=== PATIENT | female | born 1975 ===

== ENCOUNTER 2016-12-09 16:26 | Observation (INO) | payer MEDICAID, OTHER ==
[2016-12-09 17:51] LABS: BASO # 0.1 K/uL (0.0-0.2); BASO % 1.1 % (0.0-2.0); EOS # 0.3 K/uL (0.0-0.7); EOS % 3.1 % (0.0-4.0); HEMATOCRIT 36.2 % (34.0-47.0); LYMPH # 2.4 K/uL (1.0-4.3); LYMPH % 25.1 % (20.0-40.0); MEAN CORPUSCULAR HEMOGLOBIN 28.7 pg (27.0-31.0); MEAN CORPUSCULAR HGB CONC 33.8 g/dL (33.0-37.0); MONO # 0.5 K/uL (0.0-0.8); MONO % 5.5 % (0.0-10.0); NEUT # 6.3 K/uL (1.8-7.0); NEUT % 65.2 % (50.0-75.0); RED CELL DISTRIBUTION WIDTH 13.6 % (11.5-14.5); WHITE BLOOD COUNT 9.7 K/uL (4.8-10.8)
[2016-12-09 18:13] LABS: PARTIAL THROMBOPLASTIN TIME 37.8 Seconds (25.6-37.1)
[2016-12-09 18:14] LABS: ALB/GLOB RATIO 1.2 (1.0-2.1); ALKALINE PHOSPHATASE 52 U/L (38-126); ALT/SGPT 23 U/L (9-52); AST/SGOT 22 U/L (14-36); BILIRUBIN,TOTAL 0.3 mg/dl (0.2-1.3); BLOOD UREA NITROGEN 16 mg/dl (7-17); CALCIUM 8.3 mg/dL (8.4-10.2); CARBON DIOXIDE 20 mmol/L (22-30); CHLORIDE 111 mmol/L (98-107); CHOLESTEROL 197 mg/dL (0-199); GFR AFRICAN-AMERICAN > 60; GLUCOSE,RANDOM 98 mg/dL (65-105); SODIUM 140 mmol/l (132-148); TOTAL PROTEIN 7.4 G/DL (6.3-8.2)
--- NOTE | 2016-12-09 18:23 | ED PDOC ---
HPI: General Adult Time Seen by Provider: 12/09/16 17:03 Chief Complaint (Nursing): Weakness/Neurological Deficit Chief Complaint (Provider): Weakness/Neurological Deficit History Per: Patient History/Exam Limitations: no limitations Onset/Duration Of Symptoms: Hrs (x5) Current Symptoms Are (Timing): Still Present Additional Complaint(s): Sarah Hays is a 41 year old female with previous medical history of asthma, who presents to the emergency department with a complaint of left-sided face and left arm numbness associated with tingling sensation and blurry vision ongoing for 5 hours prior to arrival. Denied any headaches, dizziness, weakness or upper/lower extremity pain. PMD: Alex rGiffin MD NIHSS Stroke Scale - Date/Time Evaluation Performed Date Performed: 12/09/16 Time Performed: 17:26 When Was NIHSS Performed: Baseline - How Severe is the Stroke Level of Consciousness: 0=Alert LOC to Questions: 0=Both comments correct LOC to commands: 0=Obeys both correctly Best Gaze: 0=Normal Visual: 0=No visual loss Facial: 0=Normal Motor Arm - Left: 0=No drift Motor Arm - Right: 0=No drift Motor Leg - Left: 0=No drift Motor Leg - Right: 0=No drift Limb Ataxia: 0=Absent Sensory: 0=Normal Best Language: 0=No aphasia Dysarthia: 0=Normal articulation Extinction & Inattention (Neglect): 0=Normal, no object Score: 0 Severity Of Stroke: 0 = No Stroke rTPA Inclusion/Exclusion - Refusal of Treatment Patient Refused Treatment: No - Inclusion Criteria for Altepase Patient is 18 years or Older: Yes The Clinical Diagnosis of Ischemic Stroke That is Causing a Potentially Disabling Neurological Deficit: No Time of Onset is Well Established to be Less Than 270 Minute Before Treatment Would Begin: No Risk/Benefit Discussed With Patient/Family Member Present: No Past Medical History Reviewed: Historical Data, Nursing Documentation, Vital Signs Vital Signs: Last Vital Signs Temp 98.4 F 12/10/16 12:00 Pulse 60 12/10/16 12:00 Resp 20 12/10/16 12:00 BP 104/71 12/10/16 12:00 Pulse Ox 98 12/10/16 12:00 - Medical History PMH: Asthma Denies: Chronic Kidney Disease - Surgical History Surgical History: No Surg Hx - Family History Family History: States: Unknown Family Hx - Social History Current smoker - smoking cessation education provided: No Alcohol: None Drugs: Denies - Home Medications Home Medications: Ambulatory Orders Medication Instructions Recorded Loratadine [Claritin] 10 mg PO DAILY PRN 12/09/16 - Allergies Allergies/Adverse Reactions: Allergies Allergy/AdvReac Type Severity Reaction Status Date / Time No Known Allergies Allergy Verified 12/09/16 16:50 Review of Systems ROS Statement: Except As Marked, All Systems Reviewed And Found Negative Eyes: Positive for: Vision Change (blurry) Musculoskeletal: Negative for: Arm Pain, Leg Pain Neurological: Positive for: Numbness (left-sided face and left arm associated with tingling). Negative for: Weakness, Headache, Dizziness Physical Exam - Reviewed Nursing Documentation Reviewed: Yes Vital Signs Reviewed: Yes - Physical Exam Appears: Positive for: Well, Non-toxic, No Acute Distress Head Exam: Positive for: ATRAUMATIC, NORMAL INSPECTION, NORMOCEPHALIC Skin: Positive for: Normal Color Eye Exam: Positive for: Normal appearance, EOMI, PERRL. Negative for: Nystagmus ENT: Positive for: Normal ENT Inspection Neck: Positive for: Normal, Painless ROM, Supple. Negative for: Decreased ROM Cardiovascular/Chest: Positive for: Regular Rate, Rhythm, Chest Non Tender Respiratory: Positive for: Normal Breath Sounds, Accessory Muscle Use. Negative for: Decreased Breath Sounds, Respiratory Distress Gastrointestinal/Abdominal: Positive for: Normal Exam, Bowel Sounds, Soft. Negative for: Tenderness Back: Positive for: Normal Inspection. Negative for: L CVA Tenderness, R CVA Tenderness Extremity: Positive for: Normal ROM. Negative for: Tenderness, Pedal Edema, Deformity Neurologic/Psych: Positive for: Alert, sequencing machine operator II-XII (intact), Oriented. Negative for: Motor/Sensory Deficits, Aphasia - Laboratory Results Result Diagrams: 12/09/16 17:42 12/09/16 17:42 - ECG O2 Sat by Pulse Oximetry: 99 (RA) Pulse Ox Interpretation: Normal Medical Decision Making Medical Decision Making: Initial Impression: Left facial/arm numbness Differential Diagnosis: CVA; TIA; multiple sclerosis, cervical radiculopathy Initial Plan: * Type and screen * CT head without contrast * EKG * CMP * Drug screen, urine * Hemoglobin A1C * Lipid panel * Troponin I * CBC * PTT * PT * CXR * Accucheck Time: 1805 --CXR FINDINGS: LUNGS: No active pulmonary disease. PLEURA: No significant pleural effusion identified, no pneumothorax apparent. CARDIOVASCULAR: Normal. OSSEOUS STRUCTURES: No significant abnormalities. VISUALIZED UPPER ABDOMEN: Normal. OTHER FINDINGS: None. IMPRESSION: No active disease. 1829 Discussed the case with Dr Mendez who recommends MRI brain and admission for observation and stroke work up. Scribe Attestation: Documented by Francesca Fajardo, acting as a scribe for Gonzalo Hall MD. Provider Scribe Attestation: All medical record entries made by the Scribe were at my direction and personally dictated by me. I have reviewed the chart and agree that the record accurately reflects my personal performance of the history, physical exam, medical decision making, and the department course for this patient. I have also personally directed, reviewed, and agree with the discharge instructions and disposition. Disposition - Clinical Impression Clinical Impression: Left sided numbness - Patient ED Disposition Is Patient to be Admitted: Yes Discussed With : Alex Griffin Doctor Will See Patient In The: Hospital Counseled Patient/Family Regarding: Studies Performed, Diagnosis - Disposition Disposition Time: 18:30 Condition: FAIR - Pt Status Changed To: Hospital Disposition Of: Observation - POA Present On Arrival: None
--- NOTE | 2016-12-09 18:48 | CT ---
PROCEDURE: CT HEAD WITHOUT CONTRAST. HISTORY: left arm numbness COMPARISON: None available. TECHNIQUE: Axial computed tomography images were obtained through the head/brain without intravenous contrast. Radiation dose: Total exam DLP = 848.33 mGy-cm. This CT exam was performed using one or more of the following dose reduction techniques: Automated exposure control, adjustment of the mA and/or kV according to patient size, and/or use of iterative reconstruction technique. FINDINGS: HEMORRHAGE: No intracranial hemorrhage. BRAIN: No mass effect or edema. No atrophy or chronic microvascular ischemic changes. VENTRICLES: Unremarkable. No hydrocephalus. CALVARIUM: Unremarkable. PARANASAL SINUSES: Unremarkable as visualized. No significant inflammatory changes. MASTOID AIR CELLS: Unremarkable as visualized. No inflammatory changes. OTHER FINDINGS: None. IMPRESSION: Normal CT of the Head. No intracranial mass, hemorrhage or evidence of acute infarct.
--- NOTE | 2016-12-09 20:49 | MRI ---
EXAM: MR Head Without Intravenous Contrast CLINICAL HISTORY: 41 years old, female; Signs and symptoms; Other: Left side numbness; Patient HX: Pat C/O of left-side face and left arm numbness; Additional info: Left sided numbness TECHNIQUE: Magnetic resonance images of the head/brain without intravenous contrast in multiple planes. COMPARISON: CT - HEAD W/O CONTRAST 2016-12-09 18:19 FINDINGS: Brain: Multiple nonspecific punctate foci of T2 and FLAIR hyperintensities in the subcortical white matter of the bilateral frontal and parietal lobes. No hemorrhage. No acute infarct. Ventricles: Unremarkable. No ventriculomegaly. Bones/joints: Unremarkable. Sinuses: Unremarkable as visualized. No acute sinusitis. Mastoid air cells: Unremarkable as visualized. No mastoid effusion. Orbits: Unremarkable as visualized. IMPRESSION: Multiple nonspecific foci of frontal and parietal subcortical white matter hyperintensities. This finding can be associated with a variety of etiologies including chronic microvascular ischemia, long-standing hypertension, headaches, and inflammatory processes. No acute intracranial hemorrhage or infarct.
[2016-12-10 06:12] LABS: THYROID STIMULATING HORMONE 0.86 mIU/ML (0.46-4.68)
--- NOTE | 2016-12-10 08:05 | CARD ---
APPROVED REPORT EKG Measurement Heart [id number] <Conclusion> Sinus bradycardia Otherwise normal ECG
--- NOTE | 2016-12-10 13:07 | CP.PCM.HP ---
History of Present Illness - History of Present Illness History of Present Illness: 41 YO F w/ PMH of asthma presented to the ED with left arm numbness and tingling sensation, with some visual disturbances. - The patient states she had these symptoms in the past as well PMH: Asthma PSH: none Allergies: none Present on Admission - Present on Admission Any Indicators Present on Admission: No Past Patient History - Infectious Disease Hx of Infectious Diseases: None - Past Medical History & Family History Past Medical History?: Yes - Past Social History Smoking Status: Never Smoked - CARDIAC Hx Cardiac Disorders: No - PULMONARY Hx Respiratory Disorders: Yes Hx Asthma: Yes - NEUROLOGICAL Hx Neurological Disorder: Yes Hx Dizziness: Yes - HEENT Hx HEENT Problems: No - RENAL Hx Chronic Kidney Disease: No - ENDOCRINE/METABOLIC Hx Endocrine Disorders: No - HEMATOLOGICAL/ONCOLOGICAL Hx Blood Disorders: No - INTEGUMENTARY Hx Dermatological Problems: No - MUSCULOSKELETAL/RHEUMATOLOGICAL Hx Musculoskeletal Disorders: Yes Hx Falls: No Hx Fractures: Yes (right ankle fx) - GASTROINTESTINAL Hx Gastrointestinal Disorders: No - GENITOURINARY/GYNECOLOGICAL Hx Genitourinary Disorders: No - PSYCHIATRIC Hx Psychophysiologic Disorder: No Hx Substance Use: No - SURGICAL HISTORY Hx Surgeries: Yes Hx Section: Yes (x3) Other/Comment: Right ankle ORIF - ANESTHESIA Hx Anesthesia: Yes Hx Anesthesia Reactions: No Hx Malignant Hyperthermia: No Meds Allergies/Adverse Reactions: Allergies Allergy/AdvReac Type Severity Reaction Status Date / Time No Known Allergies Allergy Verified 12/09/16 16:50 Physical Exam - Constitutional Appears: No Acute Distress - Head Exam Head Exam: NORMAL INSPECTION - Eye Exam Eye Exam: Normal appearance - ENT Exam ENT Exam: Mucous Membranes Moist - Respiratory Exam Respiratory Exam: Clear to Auscultation Bilateral, NORMAL BREATHING PATTERN. absent: Rhonchi, Wheezes - Cardiovascular Exam Cardiovascular Exam: REGULAR RHYTHM, +S1, +S2 - GI/Abdominal Exam GI & Abdominal Exam: Normal Bowel Sounds, Soft. absent: Tenderness - Neurological Exam Neurological exam: Alert, CN II-XII Intact (Motor and sensory grossly intact), Oriented x3 Results - Vital Signs Recent Vital Signs: Last Vital Signs Temp 98.4 F 12/10/16 12:00 Pulse 60 12/10/16 12:00 Resp 20 12/10/16 12:00 BP 104/71 12/10/16 12:00 Pulse Ox 98 12/10/16 12:00 - Labs Result Diagrams: 12/09/16 17:42 12/09/16 17:42 Labs: Laboratory Results - last 24 hr 12/09/16 12/09/16 12/09/16 17:20 17:40 17:42 WBC 9.7 RBC 4.26 Hgb 12.2 Hct 36.2 MCV 85.0 MCH 28.7 MCHC 33.8 RDW 13.6 Plt Count 285 MPV 9.0 Neut % (Auto) 65.2 Lymph % (Auto) 25.1 Lyman % (Auto) 5.5 Eos % (Auto) 3.1 Baso % (Auto) 1.1 Neut # 6.3 Lymph # 2.4 Lyman # 0.5 Eos # 0.3 Baso # 0.1 PT INR APTT Sodium Potassium Chloride Carbon Dioxide Anion Gap BUN Creatinine Est GFR ( Amer) Est GFR (Non-Af Amer) POC Glucose (mg/dL) 102 Random Glucose Hemoglobin A1c Calcium Total Bilirubin AST ALT Alkaline Phosphatase Troponin I Total Protein Albumin Globulin Albumin/Globulin Ratio Triglycerides Cholesterol LDL Cholesterol Direct HDL Cholesterol TSH 3rd Generation Urine Opiates Screen Negative Urine Methadone Screen Negative Ur Barbiturates Screen Negative Ur Phencyclidine Scrn Negative Ur Amphetamines Screen Negative U Benzodiazepines Scrn Negative U Oth Cocaine Metabols Negative U Cannabinoids Screen Negative 12/09/16 12/09/16 12/09/16 17:42 17:42 17:42 WBC RBC Hgb Hct MCV MCH MCHC RDW Plt Count MPV Neut % (Auto) Lymph % (Auto) Lyman % (Auto) Eos % (Auto) Baso % (Auto) Neut # Lymph # Lyman # Eos # Baso # PT 13.2 H INR 1.2 APTT 37.8 H Sodium 140 Potassium 4.0 Chloride 111 H Carbon Dioxide 20 L Anion Gap 13 BUN 16 Creatinine 0.7 Est GFR ( Amer) > 60 Est GFR (Non-Af Amer) > 60 POC Glucose (mg/dL) Random Glucose 98 Hemoglobin A1c 5.8 Calcium 8.3 L Total Bilirubin 0.3 AST 22 ALT 23 Alkaline Phosphatase 52 Troponin I < 0.0120 Total Protein 7.4 Albumin 4.0 Globulin 3.3 Albumin/Globulin Ratio 1.2 Triglycerides 63 Cholesterol 197 LDL Cholesterol Direct 119 HDL Cholesterol 56 TSH 3rd Generation Urine Opiates Screen Urine Methadone Screen Ur Barbiturates Screen Ur Phencyclidine Scrn Ur Amphetamines Screen U Benzodiazepines Scrn U Oth Cocaine Metabols U Cannabinoids Screen 12/10/16 04:20 WBC RBC Hgb Hct MCV MCH MCHC RDW Plt Count MPV Neut % (Auto) Lymph % (Auto) Lyman % (Auto) Eos % (Auto) Baso % (Auto) Neut # Lymph # Lyman # Eos # Baso # PT INR APTT Sodium Potassium Chloride Carbon Dioxide Anion Gap BUN Creatinine Est GFR ( Amer) Est GFR (Non-Af Amer) POC Glucose (mg/dL) Random Glucose Hemoglobin A1c Calcium Total Bilirubin AST ALT Alkaline Phosphatase Troponin I Total Protein Albumin Globulin Albumin/Globulin Ratio Triglycerides 80 D Cholesterol 197 LDL Cholesterol Direct 117 HDL Cholesterol 47 TSH 3rd Generation 0.86 Urine Opiates Screen Urine Methadone Screen Ur Barbiturates Screen Ur Phencyclidine Scrn Ur Amphetamines Screen U Benzodiazepines Scrn U Oth Cocaine Metabols U Cannabinoids Screen Assessment & Plan - Assessment and Plan (Free Text) Assessment: 1) Numbess and tingling down left arm: Most likely secondary to cervical radiculopathy. - MRI: Multiple nonspecific foci of frontal and parietal subcortical white matter hyperintensities. Chronic microvascular ischemia, long standing hypertension - Neuro reccomendation appreciated - Ordered Caroted doppler - CT no acute findings - Continue with Low dose asprin - Lipitor 10 mg - Lyrica 50 mg PO HS - F/U with neuro outpatient if carotid dopler is wnl
--- NOTE | 2016-12-10 13:14 | CP.PCM.DIS ---
Provider - Provider Date of Admission: 12/09/16 18:57 Attending physician: Alex Griffin MD Time Spent in preparation of Discharge (in minutes): 30 Diagnosis - Discharge Diagnosis (1) Cervical radicular pain Status: Acute Hospital Course - Lab Results Lab Results: Most Recent Lab Values WBC 9.7 K/uL (4.8-10.8) 12/09/16 17:42 RBC 4.26 Mil/uL (3.80-5.20) 12/09/16 17:42 Hgb 12.2 g/dL (12.0-16.0) 12/09/16 17:42 Hct 36.2 % (34.0-47.0) 12/09/16 17:42 MCV 85.0 fl (81.0-99.0) 12/09/16 17:42 MCH 28.7 pg (27.0-31.0) 12/09/16 17:42 MCHC 33.8 g/dL (33.0-37.0) 12/09/16 17:42 RDW 13.6 % (11.5-14.5) 12/09/16 17:42 Plt Count 285 K/uL (130-400) 12/09/16 17:42 MPV 9.0 fl (7.2-11.7) 12/09/16 17:42 Neut % (Auto) 65.2 % (50.0-75.0) 12/09/16 17:42 Lymph % (Auto) 25.1 % (20.0-40.0) 12/09/16 17:42 [place] % (Auto) 5.5 % (0.0-10.0) 12/09/16 17:42 Eos % (Auto) 3.1 % (0.0-4.0) 12/09/16 17:42 Baso % (Auto) 1.1 % (0.0-2.0) 12/09/16 17:42 Neut # 6.3 K/uL (1.8-7.0) 12/09/16 17:42 Lymph # 2.4 K/uL (1.0-4.3) 12/09/16 17:42 [place] # 0.5 K/uL (0.0-0.8) 12/09/16 17:42 Eos # 0.3 K/uL (0.0-0.7) 12/09/16 17:42 Baso # 0.1 K/uL (0.0-0.2) 12/09/16 17:42 PT 13.2 Seconds (9.8-13.1) H 12/09/16 17:42 INR 1.2 (0.9-1.2) 12/09/16 17:42 APTT 37.8 Seconds (25.6-37.1) H 12/09/16 17:42 Sodium 140 mmol/l (132-148) 12/09/16 17:42 Potassium 4.0 MMOL/L (3.6-5.0) 12/09/16 17:42 Chloride 111 mmol/L (98-107) H 12/09/16 17:42 Carbon Dioxide 20 mmol/L (22-30) L 12/09/16 17:42 Anion Gap 13 (10-20) 12/09/16 17:42 BUN 16 mg/dl (7-17) 12/09/16 17:42 Creatinine 0.7 mg/dL (0.7-1.2) 12/09/16 17:42 Est GFR ( Amer) > 60 12/09/16 17:42 Est GFR (Non-Af Amer) > 60 12/09/16 17:42 POC Glucose (mg/dL) 102 mg/dL (65-110) 12/09/16 17:20 Random Glucose 98 mg/dL (65-105) 12/09/16 17:42 Hemoglobin A1c 5.8 % (4.2-6.5) 12/09/16 17:42 Calcium 8.3 mg/dL (8.4-10.2) L 12/09/16 17:42 Total Bilirubin 0.3 mg/dl (0.2-1.3) 12/09/16 17:42 AST 22 U/L (14-36) 12/09/16 17:42 ALT 23 U/L (9-52) 12/09/16 17:42 Alkaline Phosphatase 52 U/L (38-126) 12/09/16 17:42 Troponin I < 0.0120 ng/mL (0.00-0.120) 12/09/16 17:42 Total Protein 7.4 G/DL (6.3-8.2) 12/09/16 17:42 Albumin 4.0 g/dL (3.5-5.0) 12/09/16 17:42 Globulin 3.3 gm/dL (2.2-3.9) 12/09/16 17:42 Albumin/Globulin Ratio 1.2 (1.0-2.1) 12/09/16 17:42 Triglycerides 80 mg/DL (0-149) D 12/10/16 04:20 Cholesterol 197 mg/dL (0-199) 12/10/16 04:20 LDL Cholesterol Direct 117 mg/dL (0-129) 12/10/16 04:20 HDL Cholesterol 47 MG/DL (30-70) 12/10/16 04:20 TSH 3rd Generation 0.86 mIU/ML (0.46-4.68) 12/10/16 04:20 Urine Opiates Screen Negative (NEGATIVE) 12/09/16 17:40 Urine Methadone Screen Negative (NEGATIVE) 12/09/16 17:40 Ur Barbiturates Screen Negative (NEGATIVE) 12/09/16 17:40 Ur Phencyclidine Scrn Negative (NEGATIVE) 12/09/16 17:40 Ur Amphetamines Screen Negative (NEGATIVE) 12/09/16 17:40 U Benzodiazepines Scrn Negative (NEGATIVE) 12/09/16 17:40 U Oth Cocaine Metabols Negative (NEGATIVE) 12/09/16 17:40 U Cannabinoids Screen Negative (NEGATIVE) 12/09/16 17:40 - Hospital Course Hospital Course: 1) Numbess and tingling down left arm: Most likely secondary to cervical radiculopathy. - MRI: Multiple nonspecific foci of frontal and parietal subcortical white matter hyperintensities. Chronic microvascular ischemia, long standing hypertension - Neuro reccomendation appreciated - Ordered Caroted doppler - CT no acute findings - Continue with Low dose asprin - Lipitor 10 mg - Lyrica 50 mg PO HS - F/U with neuro outpatient if carotid Doppler is wnl Discharge Exam - Head Exam Head Exam: NORMAL INSPECTION - Eye Exam Eye Exam: Normal appearance - Respiratory Exam Respiratory Exam: Clear to PA & Lateral, NORMAL BREATHING PATTERN, UNREMARKABLE - Cardiovascular Exam Cardiovascular Exam: REGULAR RHYTHM, +S1, +S2 - GI/Abdominal Exam GI & Abdominal Exam: Normal Bowel Sounds, Soft. absent: Tenderness - Neurological Exam Neurological exam: Alert, CN II-XII Intact, Oriented x3 Additional comments: motor and sensory intact - Skin Skin Exam: Normal Color, Warm Discharge Plan - Follow Up Plan Condition: STABLE Disposition: HOME/ ROUTINE
--- NOTE | 2016-12-10 14:16 | CON ---
NEUROLOGY CONSULTATION REPORT REASON FOR CONSULTATION: Numbness in the left arm and left face. HISTORY OF PRESENT ILLNESS: The patient is a 41-year-old female who I have been asked for evaluation of numbness in the left arm and left face. This started yesterday. It lasted several minutes and then spontaneously resolved. The patient did not have any headache before or after the episode. Does not get headaches usually. She had some blurring of vision. At the moment, she feels fine. Denies any other complaints. PAST MEDICAL HISTORY: None. MEDICATIONS AT HOME: None. ALLERGIES: NO KNOWN DRUG ALLERGIES. FAMILY HISTORY: Reviewed and noncontributory to the case. SOCIAL HISTORY: Denies smoking, use of alcohol or illicit drugs. REVIEW OF SYSTEMS: Denies any headache, chest pain, shortness of breath, abdominal pain, constipation, diarrhea, dysuria, pyuria, cough with sputum production. PHYSICAL EXAMINATION GENERAL: The patient is a middle-aged pleasant female, sitting, in no acute distress. VITAL SIGNS: Blood pressure is 118/77, heart rate is 57 per minute, breathing at the rate of 16 per minute, temperature is 98.5 degrees Fahrenheit. HEENT: Head is normocephalic, atraumatic. NECK: Supple. There are no carotid bruits. LUNGS: Clear. CARDIOVASCULAR SYSTEM: S1 and S2 are audible. No murmurs. ABDOMEN: Soft and nontender. Bowel sounds present. NEUROLOGY: Mental status: The patient is awake and alert, oriented to time, place and person. Her speech is fluent. Naming and repetition normal. Memory and cognition are intact. Cranial nerve examination: Pupils are 3 mm, bilaterally reactive to light. Visual jade are full. Extraocular movements are intact. There is no facial asymmetry. Palate is upgoing bilaterally and tongue is midline. Motor examination: Tone is normal. Power is 5/5 bilaterally in all extremities. Reflexes 1+ and symmetrical. Plantars downgoing bilaterally. LABORATORY DATA: Labs reviewed. MRI of the brain shows multiple nonspecific foci of frontal and parietal subcortical white matter hyperintensities. Findings can be associated with a variety of etiologies including chronic microvascular ischemia, longstanding hypertension or migraine. No acute intracranial pathology. IMPRESSION: Status post numbness and tingling sensation in the left hand and left face with associated blurred vision. This may have been a transient ischemic attack versus questionable migraine accompaniment. RECOMMENDATION: 1. Agree with starting the patient on aspirin and statin. 2. The patient to have carotid Doppler study. 3. If the patient's carotid Doppler is negative for any acute pathology, then she may be discharged with outpatient followup. Thank you for the opportunity to participate in the care of this patient. Monik Mendez MD
--- NOTE | 2016-12-10 15:05 | US ---
PROCEDURE: Duplex ultrasound of the carotid and vertebral arteries. HISTORY: Left face and arm numbness COMPARISON: None available. TECHNIQUE: Grayscale and duplex Doppler evaluation of the cervical carotid and vertebral arteries were performed. The common carotid, carotid bifurcations and cervical ICA and proximal ECA were evaluated. The vertebral arteries were evaluated for gross patency and direction. FINDINGS: RIGHT CAROTID ARTERIES: Common Carotid Artery: Normal. Maximal flow velocity of 79.8 cm/s. Carotid Bifurcation: Normal. Internal Carotid Artery:Normal. Maximal flow velocity of 71.9 cm/s. External Carotid Artery (proximal branches): Normal. Maximal flow velocity of 71.1 cm/s. ICA/CCA Ratio: 1.2 LEFT CAROTID ARTERIES: Common Carotid Artery: Normal. Maximal flow velocity of 67.2 cm/s. Carotid Bifurcation: Normal. Internal Carotid Artery:Normal. Maximal flow velocity of 78.1 cm/s. External Carotid Artery (proximal branches): Normal. Maximal flow velocity of 59.8 cm/s. ICA/CCA Ratio: 1.4 VERTEBRAL ARTERIES: Right Vertebral Artery: Patent. Antegrade flow. Left Vertebral Artery: Patent. Antegrade flow. OTHER FINDINGS: None. IMPRESSION: No hemodynamically significant stenosis.
[2016-12-10 15:40] VITALS: O2SAT 99
[2016-12-10 16:22] VITALS: BP 123/79; PULSE 66; RESP 14; TEMP 97.6
== END 2016-12-10 17:01 | disposition home or self-care (01) ==
LOC: H.ER 16:26 → H.ERHOLD 18:57 → H.TEL 20:57
PROVIDERS: ADMIT Family Medicine; ATTEND Family Medicine
DX: M54.12 Radiculopathy, cervical region (principal); I10 Essential (primary) hypertension; J45.909 Unspecified asthma, uncomplicated; Z79.899 Other long term (current) drug therapy
CPT/HCPCS: 36415; 70450; 70551; 71010; 80053; 80061; 81025; 82948; 83036; 84443; 84484; 85025; 85610; 85730; 93005; 93880; 99285; G0378; G0480

== ENCOUNTER 2017-01-22 00:59 | Emergency (ER) | payer MEDICAID ==
[2017-01-22 01:22] VITALS: BP 130/85; PULSE 70; RESP 16; TEMP 98.7; O2SAT 99
[2017-01-22] MEDS ORDERED: Sodium Chloride 0.9% 1,000 ML IV STA ×2 (01:39→01:58)
[2017-01-22 02:14] LABS: BASO % 0.4 % (0.0-2.0); EOS # 0.6 K/uL (0.0-0.7); EOS % 6.7 % (0.0-4.0); HEMATOCRIT 37.7 % (34.0-47.0); LYMPH # 1.8 K/uL (1.0-4.3); LYMPH % 20.9 % (20.0-40.0); MEAN CELL VOLUME 85.9 fl (81.0-99.0); MEAN CORPUSCULAR HEMOGLOBIN 28.3 pg (27.0-31.0); MEAN CORPUSCULAR HGB CONC 32.9 g/dL (33.0-37.0); MEAN PLATELET VOLUME 8.8 fl (7.2-11.7); MONO # 0.6 K/uL (0.0-0.8); MONO % 7.5 % (0.0-10.0); NEUT # 5.6 K/uL (1.8-7.0); NEUT % 64.5 % (50.0-75.0); RED CELL DISTRIBUTION WIDTH 13.3 % (11.5-14.5); WHITE BLOOD COUNT 8.6 K/uL (4.8-10.8)
[2017-01-22 02:34] LABS: ALB/GLOB RATIO 1.1 (1.0-2.1); ALKALINE PHOSPHATASE 71 U/L (38-126); ALT/SGPT 31 U/L (9-52); AST/SGOT 27 U/L (14-36); BILIRUBIN,TOTAL 0.5 mg/dl (0.2-1.3); BLOOD UREA NITROGEN 10 mg/dl (7-17); CALCIUM 8.7 mg/dL (8.4-10.2); CARBON DIOXIDE 24 mmol/L (22-30); CHLORIDE 105 mmol/L (98-107); GFR AFRICAN-AMERICAN > 60; GLUCOSE,RANDOM 100 mg/dL (65-105); POTASSIUM 3.5 MMOL/L (3.6-5.0); SODIUM 139 mmol/l (132-148); TOTAL PROTEIN 7.7 G/DL (6.3-8.2)
--- NOTE | 2017-01-22 03:30 | ED PDOC ---
HPI:Nausea, Vomiting, Diarrhea Time Seen by Provider: 01/22/17 01:35 Chief Complaint (Nursing): GI Problem Chief Complaint (Provider): Nausea and vomiting History Per: Patient History/Exam Limitations: no limitations Onset/Duration Of Symptoms: Hrs Current Symptoms Are (Timing): Still Present Additional Complaint(s): Pt denies abdominal pain. No fever/chills. Pt also reports nasal congestion and dry cough for a few days. Past Medical History Reviewed: Historical Data, Nursing Documentation, Vital Signs Vital Signs: Last Vital Signs Temp 98.7 F 01/22/17 01:18 Pulse 70 01/22/17 01:18 Resp 16 01/22/17 01:18 BP 130/85 01/22/17 01:18 Pulse Ox 99 01/22/17 01:18 - Medical History PMH: Asthma, Fractures (right ankle fx) Denies: Chronic Kidney Disease - Surgical History Surgical History: No Surg Hx - Family History Family History: States: Unknown Family Hx - Living Arrangements Living Arrangements: With Family - Social History Current smoker - smoking cessation education provided: No Alcohol: None Drugs: Denies - Home Medications Home Medications: Ambulatory Orders Medication Instructions Recorded Loratadine [Claritin] 10 mg PO DAILY PRN 12/09/16 Famotidine [Pepcid] 20 mg PO BID #28 tab 01/22/17 Loratadine [Claritin] 10 mg PO DAILY #14 tab 01/22/17 Ondansetron ODT [Zofran ODT] 4 mg PO QID #20 odt 01/22/17 - Allergies Allergies/Adverse Reactions: Allergies Allergy/AdvReac Type Severity Reaction Status Date / Time No Known Allergies Allergy Verified 01/22/17 01:18 Review of Systems ROS Statement: Except As Marked, All Systems Reviewed And Found Negative Constitutional: Negative for: Fever, Chills Respiratory: Positive for: Cough Gastrointestinal: Positive for: Nausea, Vomiting. Negative for: Abdominal Pain Physical Exam - Reviewed Nursing Documentation Reviewed: Yes Vital Signs Reviewed: Yes - Physical Exam Appears: Positive for: Well, Non-toxic, No Acute Distress Head Exam: Positive for: ATRAUMATIC, NORMAL INSPECTION, NORMOCEPHALIC Skin: Positive for: Normal Color, Warm, DRY Eye Exam: Positive for: Normal appearance ENT: Positive for: Normal ENT Inspection Neck: Positive for: Normal, Painless ROM Cardiovascular/Chest: Positive for: Regular Rate, Rhythm Respiratory: Positive for: Normal Breath Sounds. Negative for: Accessory Muscle Use Back: Positive for: Normal Inspection Extremity: Positive for: Normal ROM Neurologic/Psych: Positive for: Alert, Oriented - Laboratory Results Result Diagrams: 01/22/17 02:10 01/22/17 02:10 - ECG O2 Sat by Pulse Oximetry: 99 Disposition - Clinical Impression Clinical Impression: Gastritis - Patient ED Disposition Is Patient to be Admitted: No Counseled Patient/Family Regarding: Diagnosis, Need For Followup, Rx Given - Disposition Referrals: Alex Griffin MD [Primary Care Provider] - Disposition: Routine/Home Disposition Time: 03:28 Condition: STABLE Prescriptions: Famotidine [Pepcid] 20 mg PO BID #28 tab Loratadine [Claritin] 10 mg PO DAILY #14 tab Ondansetron ODT [Zofran ODT] 4 mg PO QID #20 odt Instructions: Acute Nausea and Vomiting (ED) Forms: [employer] [facility] (Korean)
== END 2017-01-22 04:11 | disposition home or self-care (01) ==
LOC: H.ER 00:59
DX: K29.70 Gastritis, unspecified, without bleeding (principal)
CPT/HCPCS: 80053; 81025; 85025; 96374; 99285; J2405; J7040

== ENCOUNTER 2017-04-18 14:51 | Emergency (ER) | payer MEDICAID ==
[2017-04-18 14:59] VITALS: RESP 18
--- NOTE | 2017-04-18 15:42 | ED PDOC ---
HPI: Abdomen Chief Complaint (Provider): vomiting History Per: Patient History/Exam Limitations: no limitations Onset/Duration Of Symptoms: Days (2) Current Symptoms Are (Timing): Still Present Pain Scale Rating Of: 5 Quality Of Discomfort: Cramping Associated Symptoms: Diarrhea <Thang Allred - Last Filed: 04/18/17 18:15> <Hilaria Pepe F - Last Filed: 04/18/17 18:34> <Gonzalo Hall A - Last Filed: 04/19/17 09:05> Time Seen by Provider: 04/18/17 15:12 Chief Complaint (Nursing): GI Problem Additional Complaint(s): 41 yo ,f, PMhx/o Asthma presents to ED c/o non-bloddy vomiting started yesterday , (1 yesterday, 3 today), associated with nausea, and epigastric abdominal pain started today in the morning 5/10 intensity, cramping, partially alleviated with pepto bismol. Reports abdominal pain subsided now and reports that every time she tries to eat, she has nausea or vomiting. Reports 1 non- bloddy diarrhea yesterday . Denies fever, chest pain, SOB, dysuria. Reports dry cough and runny nose started today. Reports LMP: 04/14/17 and BTL 6 years ago. (Thang Allred) Past Medical History - Medical History PMH: Asthma, Fractures (right ankle fx) Denies: Chronic Kidney Disease - Family History Family History: States: Unknown Family Hx <Thang Allred - Last Filed: 04/18/17 18:15> <Hilaria Pepe F - Last Filed: 04/18/17 18:34> <Gonzalo Hall A - Last Filed: 04/19/17 09:05> Vital Signs: Last Vital Signs Temp 98.8 F 04/18/17 18:30 Pulse 70 04/18/17 18:30 Resp 18 04/18/17 18:30 BP 128/78 04/18/17 18:30 Pulse Ox 99 04/18/17 18:30 - Home Medications Home Medications: Ambulatory Orders Medication Instructions Recorded Loratadine [Claritin] 10 mg PO DAILY PRN 12/09/16 Famotidine [Pepcid] 20 mg PO BID #28 tab 01/22/17 Loratadine [Claritin] 10 mg PO DAILY #14 tab 01/22/17 Ondansetron ODT [Zofran ODT] 4 mg PO QID #20 odt 01/22/17 Pantoprazole Sodium [Protonix] 40 mg PO DAILY #7 ect 04/18/17 - Allergies Allergies/Adverse Reactions: Allergies Allergy/AdvReac Type Severity Reaction Status Date / Time No Known Allergies Allergy Verified 01/22/17 01:18 Review of Systems Gastrointestinal: Positive for: Nausea, Vomiting, Abdominal Pain Genitourinary Female: Negative for: Dysuria <Thang Allred - Last Filed: 04/18/17 18:15> ROS Statement: Except As Marked, All Systems Reviewed And Found Negative <Gonzalo Hall - Last Filed: 04/19/17 09:05> Physical Exam - Physical Exam Appears: Positive for: Well, No Acute Distress Head Exam: Positive for: ATRAUMATIC, NORMOCEPHALIC Skin: Positive for: Normal Color ENT: Positive for: Normal ENT Inspection. Negative for: Nasal Congestion Neck: Positive for: Normal, Supple Cardiovascular/Chest: Positive for: Regular Rate, Rhythm. Negative for: Murmur Respiratory: Positive for: Normal Breath Sounds. Negative for: Crackles, Rales , Rhonchi Gastrointestinal/Abdominal: Positive for: Soft, Tenderness (mild TD epigastrium) . Negative for: Distended, Guarding, Rebound Extremity: Positive for: Normal ROM. Negative for: Pedal Edema Neurologic/Psych: Positive for: Alert, Oriented. Negative for: Motor/Sensory Deficits <Thang Allred - Last Filed: 04/18/17 18:15> - Laboratory Results Result Diagrams: 04/18/17 16:08 04/18/17 16:08 - ECG O2 Sat by Pulse Oximetry: 100 <Thang Allred - Last Filed: 04/18/17 18:15> - Laboratory Results Result Diagrams: 04/18/17 16:08 04/18/17 16:08 <Hilaria Pepe - Last Filed: 04/18/17 18:34> - Laboratory Results Result Diagrams: 04/18/17 16:08 04/18/17 16:08 <Gonzalo Hall - Last Filed: 04/19/17 09:05> Medical Decision Making <Thang Allred - Last Filed: 04/18/17 18:15> <Hilaria Pepe - Last Filed: 04/18/17 18:34> <Gonzalo Hall A - Last Filed: 04/19/17 09:05> Medical Decision Makin:30 Impression Acute Gastritis Differential Acute cholecystitis, Acute Pancreatitis Plan CBC, CMP,Lipase, urine preg, Urine dip. EKG Iv fluids, Zofran, pepcid Labs reviewed CBC, normal. CMP: K: 3.5 . Kdur 10 meq po ordered Pending Limited US reevaluation Patient reports feeling well. Abd US: no cholecystitis, no pancreatitis. labs normal Pt will be discharged and f/o PMD in 3 days. (Thang Allred) Disposition - Disposition Disposition Time: 18:20 <Thang Allred - Last Filed: 04/18/17 18:15> <Hilaria Pepe - Last Filed: 04/18/17 18:34> - Patient ED Disposition Is Patient to be Admitted: Transfer of Care Counseled Patient/Family Regarding: Studies Performed, Diagnosis - Disposition Disposition: Transfer of Care Disposition Time: 16:00 Patient Signed Over To: Hilaria Pepe <Gonzalo Hall - Last Filed: 04/19/17 09:05> - Clinical Impression Clinical Impression: Gastritis - Disposition Referrals: [facility] [Outside] Condition: STABLE Prescriptions: Pantoprazole Sodium [Protonix] 40 mg PO DAILY #7 ect Instructions: Gastritis Print Language: TURKISH Addendum <Thang Allred - Last Filed: 04/18/17 18:15> <Hilaria Pepe - Last Filed: 04/18/17 18:34> <Gonzalo Hall - Last Filed: 04/19/17 09:05> Addendum: 04/18/17 16:00 Pt signed out by Dr[address] Hall pending labs and ultrasound. (Hilaria Pepe)
[2017-04-18] MEDS ORDERED: Sodium Chloride 0.9% 1,000 ML IV SCH (15:45)
[2017-04-18 16:15] LABS: BASO % 0.4 % (0.0-2.0); EOS # 0.3 K/uL (0.0-0.7); EOS % 3.2 % (0.0-4.0); HEMOGLOBIN 12.8 g/dL (12.0-16.0); LYMPH # 2.1 K/uL (1.0-4.3); LYMPH % 19.2 % (20.0-40.0); MEAN CELL VOLUME 86.1 fl (81.0-99.0); MEAN CORPUSCULAR HEMOGLOBIN 29.3 pg (27.0-31.0); MEAN PLATELET VOLUME 8.7 fl (7.2-11.7); MONO # 0.4 K/uL (0.0-0.8); MONO % 3.7 % (0.0-10.0); NEUT # 7.8 K/uL (1.8-7.0); NEUT % 73.5 % (50.0-75.0); NRBC % 0.1 % (0.0-0.0); RBC 4.38 Mil/uL (3.80-5.20); RED CELL DISTRIBUTION WIDTH 13.4 % (11.5-14.5); WHITE BLOOD COUNT 10.7 K/uL (4.8-10.8)
[2017-04-18 16:23] LABS: ALB/GLOB RATIO 1.2 (1.0-2.1); ALBUMIN 3.8 g/dL (3.5-5.0); ALT/SGPT 26 U/L (9-52); AST/SGOT 21 U/L (14-36); BLOOD UREA NITROGEN 21 mg/dl (7-17); CALCIUM 9.2 mg/dL (8.4-10.2); GFR AFRICAN-AMERICAN > 60; GFR NON-AFRICAN AMERICAN > 60; LIPASE 130 U/L (23-300)
[2017-04-18] MEDS ORDERED: Potassium Chloride 10 mEq ER Tab PO ONE ×2 (16:59→17:46)
--- NOTE | 2017-04-18 17:48 | US ---
HISTORY: epigastric abd pain.r/o cholecystitis,pancreatitis COMPARISON: None. TECHNIQUE: Sonographic evaluation of the right upper quadrant of the abdomen. FINDINGS: LIVER: Measures 14.5 cm in length. Smooth contour. Slight increased echogenicity likely due echogenicity of the liver parenchyma likely due to fatty infiltration however other infiltrative hepatocellular disease process not excluded. . No mass. No intrahepatic bile duct dilatation. No ascites. Portal vein demonstrates hepatopetal flow GALLBLADDER: Unremarkable. No gallstones. COMMON BILE DUCT: Measures 3.0 mm. No stones. No dilatation. PANCREAS: Unremarkable as visualized. No mass. No ductal dilatation. RIGHT KIDNEY: Measures 9.3 x 4.7 x 4.4 cm in length. Normal echogenicity. No calculus, mass, or hydronephrosis. AORTA: No aneurysmal dilatation. IVC: Unremarkable. OTHER FINDINGS: None . IMPRESSION: Mild fatty hepatic infiltration however other infiltrative hepatocellular disease process not excluded.
[2017-04-18 18:31] VITALS: BP 128/78; PULSE 70; TEMP 98.8; O2SAT 99
--- NOTE | 2017-04-20 12:16 | CARD ---
APPROVED REPORT EKG Measurement Heart [id number] CO [id number] [id number] <Conclusion> Normal sinus rhythm Normal ECG
== END 2017-04-18 18:46 | disposition home or self-care (01) ==
LOC: H.ER 14:51
DX: K29.00 Acute gastritis without bleeding (principal); J45.909 Unspecified asthma, uncomplicated
CPT/HCPCS: 76705; 80053; 81025; 83690; 85025; 93005; 96374; 99283; J2405; J7040